=== PATIENT | male | born 1960 | race Native Hawaiian/Other Pacific Islander ===

== ENCOUNTER 2020-01-26 13:10 | Emergency (ER) | payer OTHER ==
[~2020-01-26] VITALS: Ht 177.8 cm; Wt 76.4 kg
[2020-01-26 13:53] VITALS: BP 140/91
== END 2020-01-26 16:01 | disposition home or self-care (01) ==
LOC: ER 13:10
DX: R10.32 Left lower quadrant pain (principal); F17.200 Nicotine dependence, unspecified, uncomplicated
CPT/HCPCS: 99281